=== PATIENT | female | born 1980 | race Caucasian/White ===

== ENCOUNTER 2020-11-15 05:28 | Inpatient (IN) | payer OTHER, SELFPAY ==
[2020-11-12 12:57] LABS: Hematocrit 37.9 % (37-47); Mean Corp Hgb Conc 31.7 g/dL (32-36); Mean Corpuscular Hgb 25.8 pg (27.0-32.0); Mean Corpuscular Volume 81.5 fL (81-99); Platelet Count 381 K/mm3 (150-450); RBC Distribution Width CV 14.7 % (11.6-14.6); RBC Distribution Width SD 42.9 fl (35.1-43.9); Red Blood Count 4.65 M/mm3 (4.2-5.4); White Blood Count 8.5 K/mm3 (4.4-11.0)
[2020-11-12 13:42] LABS: Anion Gap 8 (5-15); BUN 8 mg/dL (7-18); BUN/Creat Ratio 10.2 RATIO (10-20); Calcium,Total 9.5 mg/dL (8.5-10.1); Chloride 108 mmol/L (98-107); Creatinine, Serum 0.79 mg/dL (0.55-1.02); EST Glomerular Filtration Rate 85 mL/min (>60); Est Glom Filt Rate - Afr Amer 103 mL/min (>60); Glucose 116 mg/dL (74-106); Magnesium 2.1 mg/dL (1.6-2.6); Potassium 4.3 mmol/L (3.5-5.1); Sodium Level 138 mmol/L (136-145)
[2020-11-15] VITALS (11 sets, daily range): BP systolic 103–153; BP diastolic 56–89; PULSE 64–89; RESP 16–18; TEMP 36.4–36.9; O2SAT 93–100; BMI 33.0
[2020-11-15] MEDS: Lactated Ringers 1,000 ML 40 ML IV ×3 (05:50→15:52)
[2020-11-15 05:56] LABS: Internal QC Validated? YES +Cl - CLEAR BKGD; Pregnancy, Urine Negative Negative
[2020-11-15] MEDS: Acetaminophen 500 MG Tablet 1000 MG PO ×3 (06:15→17:50)
[2020-11-15] MEDS: Gabapentin 600 MG Tablet PO (06:15)
--- NOTE | 2020-11-15 06:52 | PCM.HP.BLA ---
History and Physical Date of Admission: 11/15/20 Chief complaint: Abdominal pain and pressure History present illness: 40-year-old arrives with pelvic pressure and excruciating abdominal pain for total abdominal hysterectomy bilateral salpingectomy possible left ovarian cystectomy. Denies headache, visual changes, chest pain, shortness of breath, nausea vomiting. Obstetric history: G0 Past medical history: Medications: AVN, Bystolic, Klonopin, Trintellix, Vistaril Past surgical history: Tonsils and adenoids Allergies: Augmentin, ibuprofen Social history: Denies history of smoking, alcohol use, drug use Family history: Denies history of DVT or PE Review of systems: Besides above pertinent positives a full review of systems was performed and found to be negative Physical exam: Vitals: Blood pressure 120/73 pulse 80 respiratory rate 18 temperature 97.6 SPO2 100% on room air General: Normal-appearing no acute distress HEENT: Normocephalic atraumatic no cervical lymphadenopathy Cardiac/respiratory: No use of accessory muscles, nonlabored breathing Abdomen: Soft, nontender, nondistended. Palpable uterus to 3 cm above the umbilicus Pelvic exam: Normal external genitalia. Moist vaginal rugae. Cervix within normal limits. Palpable fibroid uterine fundus 2 to 3 cm above the umbilicus Extremities: No peripheral edema normal peripheral pulses Psych: Normal affect normal demeanor nonpressured speech Labs: Hemoglobin 12, hematocrit 37.9%. Blood type O+ antibody negative Assessment and plan: 40-year-old with pelvic pain and pressure large leiomyomas. Ultrasound in office shows uterus is 17.5 cm x 9.5 cm x 11.5 cm. Multiple fibroids measuring between 11 and 8 cm. Patient G0, understands fertility after hysterectomy and does not desire children. Offered fertility specialist, but patient declines. For total abdominal hysterectomy bilateral salpingectomy possible left ovarian cystectomy.
[2020-11-15 07:15] LABS: Bedside Glucose 189 mg/dL (70-110)
--- NOTE | 2020-11-15 07:15 | HYST_PTH ---
PATIENT: WALLY NOBLE LOC: [facility]3 U#:[id number] AGE/SX: 40/F [place] [facility] [place]: Dr. Jose Manuel Thrasher MD : 1980 BED: 1 DIS: 11/16/2020 SPEC #: [id number] RECD: 11/15/20 11:28 STATUS: SHELLY REIzabel #: [id number] GERARD: 11/15/20 07:[address]: Jose Manuel Thrasher DEPT: SURGICAL PATHOLOGY RECD BY: Sami Leonard ENTERED: 11/15/20 11:50 SP TYPE: HYSTERECT OTHR DR: Dr. Gerald Jara MD Tissues: Uterus, NOS Procedures: Surgery Specimen Level V HEADER OPERATION: ERAS, hysterectomy, total abdominal, bilateral salpingectomy PRE-OP DIAGNOSIS: Pelvic pain and pressure large leiomyomas TISSUE SUBMITTED: Cervix, uterus, bilateral fallopian tubes MICROSCOPIC DIAGNOSIS Uterus, hysterectomy: Cervix ? nabothian cysts and mild chronic inflammation. Endometrium ? weakly proliferative to inactive endometrium. Myometrium ? leiomyomas with hyalinization and focal degenerative change and focal superficial adenomyosis. Right and left fallopian tubes - no pathologic change. AM:jodi 11/16/2020 MICROSCOPIC DESCRIPTION Slides are reviewed. GROSS DESCRIPTION Received in fixative is one container labeled with the patient's name and designated cervix, uterus, bilateral fallopian tubes. The specimen consists of a hysterectomy specimen in multiple pieces consisting of uterus and three detached nodular pieces of tissue, detached cervix and detached bilateral fallopian tubes. The uterus, cervix and detached nodular pieces weigh in aggregate 1110 gm. The cervix measures 4.5 x 3.5 x 2.5 cm. The ectocervical mucosa is unremarkable. The external os is oval in contour. The endocervical canal measures 2.5 cm in length. The endocervical mucosa is unremarkable. The largest consisting of uterus measures 21 x 13 x 10 cm. The detached nodular piece measures in aggregate 16 x 11 x 6 and 6-8 cm in greatest dimension. The body of the uterine is markedly deformed due to nodular masses. The serosal surface is painting, glistening. The endometrial cavity is compressed and measures 5.5 cm in length and up to 2.5 cm in width. The endometrium is painting, glistening without any mass lesion and measures <0.1 cm in thickness. Sections of the uterine wall reveal multiple nodular masses. The largest mass measures 9 cm in greatest dimension. The detached section of the nodular masses including detached nodular masses. Sections of these masses reveal painting whorled cut surfaces without areas of hemorrhage, necrosis or cystic degeneration. Sections of the largest nodular mass reveal a focal area of hemorrhage. Sections of the largest and intermediate nodular mass reveal focal degenerative changes. Most of the uterine wall is replaced by nodular masses. The uninvolved uterine wall measures up to 4 cm in thickness. The fallopian tubes are not identified as right or left and each measures 4.5 cm in length and 0.5 cm in diameter. The fimbrial end is identified. Sections reveal unremarkable cut surfaces. Sections also contain smaller nodular masses. Resident Services Director sections are submitted in 12 cassettes as follows: 1 - anterior cervix, 2 - posterior cervix, 3-6 - uterine wall, 7 & 8 - largest nodular mass, 9 & 10 - intermediate sized nodular masses, 11 & 12 - bilateral fallopian tubes with each cassette containing one fallopian tube. / SJ:rg 11/15/20 TC:1 CPT: 61375
[2020-11-15] MEDS: Cefazolin 2 GM in 0.9% Normal Saline 100 ML IV (07:28)
--- NOTE | 2020-11-15 10:12 | OP.PCM_ITS ---
Report of Operation Date of Procedure: 11/15/20 Pre-Operative Diagnosis: Pelvic pain, leiomyomas Post-Operative Diagnosis: Pelvic pain, leiomyomas Surgery/Procedure Performed:: Total abdominal hysterectomy bilateral salpingectomy Description of Surgical Findings:: Surgeon: Jose Manuel Thrasher MD Anesthesia: General EBL: 100 cc Urine output: 200 cc IV fluids: 1800 cc Complications: None Specimen: Cervix uterus bilateral fallopian tubes, leiomyomatous Findings: Multiple 5 cm anterior fundal pedunculated fibroids, along with 8 cm anterior fibroid, 10 cm posterior fibroid, 4 cm left lateral uterine fibroid. Normal tubes, normal ovaries. Consent: Patient with extreme pelvic pain found to have enlarged uterus secondary to multiple leiomyomas nulliparous and not a good candidate for minimally invasive surgery in need of total abdominal hysterectomy bilateral salpingectomy. Patient understands risk of the procedure include but are not limited to visceral or vascular injury, prolonged hospitalization, blood loss need for transfusion, reoperation. Patient understood with large incision will have prolonged recovery and increase postoperative pain. Patient state understanding wish to proceed. All questions were answered consent was signed. Procedure: Patient was brought back to the OR where general anesthesia found to be adequate. 2 g of Ancef were given for infection prophylaxis. Patient was apparent draped in a dorsal supine position. Maylard incision was made, horizontal skin incision 2 cm suprapubic. Fascia incision was made horizontally and extended laterally. Using a Renetta the right rectus muscle was retracted and inferior epigastric vessel was identified, dissected, and suture-ligated. Good hemostasis was noted. Right rectus muscle was undermined and transected with the Bovie. Left rectus muscle was retracted with a Renetta, left inferior epigastric was identified, dissected, suture-ligated. Good hemostasis noted. Left rectus muscle was undermined and transected with the Bovie. Good hemostasis noted. Peritoneum was entered sharply and extended laterally. Uterus was exteriorized and above findings were noted. Bookwalter retractor was used for lateral abdominal and bladder retraction. Pedunculated fibroids were cut and cauterized for visualization sent to pathology. Right round ligament was identified cut and cauterized anterior posterior flap the broad ligament were dissected bladder flap was developed. Right ovary was identified and right utero-ovarian ligament was identified dissected cut and cauterized. Right fallopian tube was elevated with a Leopold, mesosalpinx was cut and cauterized with LigaSure device. Right uterine vessels were skeletonized cut and cauterized lateralized beyond the level of the colpotomy. Left round ligament was identified cut and cauterized anterior and posterior portions of the broad ligament were dissected bladder flap was completed beyond the level of colpotomy. Left ovary and utero-ovarian ligament were identified cut and cauterized. Left fallopian tube was elevated with a Lory and the mesosalpinx was cut and cauterized with LigaSure device. Left uterine vessels were identified skeletonized and cut and cauterized with LigaSure device. Left uterine vessels were lateralized beyond the level of colpotomy. Uterus was transected 3 to 4 cm above the cervix in order to remove fibroid uterus for good visualization. Cervical stump was grasped with a clamp. With bladder flap and uterine vessels lateralized and dissected beyond the level of the cervix right angle zeppelins were clamped just below the cervix, colpotomy was made with Dara scissors. Brandon stitches were placed bilaterally at the right angle zeppelins, right angle zeppelins were removed. Good hemostasis was noted bilaterally. Using Allis clamps the remaining colpotomy incision was reapproximated with [id number] sutures. Good hemostasis was noted. Peritoneum was closed in continuous running fashion. Fascia was closed in a continuous running fashion. Skin was closed in subcuticular fashion. All counts correct x2. Patient tolerated the procedure well and was brought to recovery in a stable condition. recovery collector: Pinky Luna
--- NOTE | 2020-11-15 10:24 | PCM.DC ---
Discharge Instructions Diet Discharge Diet: No restrictions Activity Discharge Activity: Return to Normal Activity, May Drive, May Shower and - (No tub baths for 2 weeks) May resume sexual activity in: 4-6 weeks Lifting Restrictions: No lifting over 25 pounds for 3 weeks Dressing / Incision Call your doctor if your incision/area has: Continuous Slow Oozing and Foul Smelling Discharge Call your doctor if you observe: Fever of 101 or Higher, Shortness of breath and Chest pain Follow Up Care Please Follow Up With: Jose Manuel Thrasher MD When: Follow-up 2 weeks postoperatively Test Results: Test results from this visit will be discussed in further detail at your follow-up appointment, if applicable. Discharge Plan Admission Admit Date/Time: 11/15/20 05:28 Attending Provider: Jose Manuel Thrasher Primary Care Provider: Gerald Jara Discharge Orders/Prescriptions Prescriptions: New oxycodone 5 mg Tablet 5 mg PO Q6H PRN PRN (Reason: Pain Score 4-10/10) 7 Days Qty: 28 RF: 0 Continued multivitamin Tablet 1 tab PO DAILY RF: 0 pantoprazole 40 mg Tablet,Delayed Release (Dr/Ec) 40 mg PO DAILY RF: 0 magnesium 200 mg Tablet 200 mg PO DAILY RF: 0 L norgest/e.estradiol-e.estrad [Seasonique] 0.15 mg-30 mcg (84)/10 mcg (7) Tablets,Dose Pack,3 Month 1 tab PO DAILY RF: 0 Bystolic 5 mg Tablet 5 mg PO DAILY RF: 0 Trintellix 20 mg Tablet 20 mg PO DAILY RF: 0 Emgality Syringe 120 mg/mL Syringe 120 mg SUBCUT QMONTH RF: 0 Nurtec ODT 75 mg Tablet,Disintegrating 75 mg PO DAILY PRN PRN (Reason: Migraine Headache) RF: 0 clonazepam [Klonopin] 1 mg Tablet 1 mg PO DAILY PRN PRN (Reason: Anxiety) RF: 0 Referrals / Follow Up: Gerald Jara MD [Primary Care Provider] -
[2020-11-15] MEDS: Ondansetron 4 MG/2 ML Vial IV (10:43)
--- NOTE | 2020-11-15 11:28 | SUR.PHASEI ---
AT 11:15, LORENZ CATHETER REMOVED INTACT.
[2020-11-15] MEDS: oxyCODONE 5 MG Tablet PO ×2 (15:52→20:02)
[2020-11-15] MEDS: Ketorolac 30 MG/ML Syringe IV (17:49)
[2020-11-15] MEDS: Docusate Sodium 100 MG Capsule PO (20:51)
[2020-11-16 00:06] VITALS: BP 134/71; PULSE 68; RESP 16; TEMP 36.9; O2SAT 93
[2020-11-16] MEDS: Ketorolac 30 MG/ML Syringe IV ×2 (00:10→05:38)
[2020-11-16] MEDS: Acetaminophen 500 MG Tablet 1000 MG PO ×2 (00:10→05:37)
[2020-11-16 04:25] VITALS: BP 130/73; PULSE 71; RESP 16; TEMP 36.7; O2SAT 93
[2020-11-16] MEDS: 0.9% Saline Lock 10 ML Syringe IV (05:42)
[2020-11-16 07:11] LABS: Hematocrit 32.9 % (37-47); Hemoglobin 10.1 g/dL (12.0-15.0); Mean Corp Hgb Conc 30.7 g/dL (32-36); Mean Corpuscular Hgb 25.6 pg (27.0-32.0); Mean Corpuscular Volume 83.3 fL (81-99); Mean Platelet Vol. 11.3 fl (6.2-12.0); Platelet Count 351 K/mm3 (150-450); RBC Distribution Width CV 14.6 % (11.6-14.6); RBC Distribution Width SD 44.3 fl (35.1-43.9); Red Blood Count 3.95 M/mm3 (4.2-5.4); White Blood Count 12.5 K/mm3 (4.4-11.0)
--- NOTE | 2020-11-16 07:52 | PCM.PN.OB ---
Subjective Subjective No overnight complaints. Pain well controlled. Objective Data Objective Data Vital Signs: Vital Signs Temp Pulse Resp BP Pulse Ox 98.0 F 71 16 130/73 H 93 11/16/20 04:25 11/16/20 04:25 11/16/20 04:25 11/16/20 04:25 11/16/20 04:25 Oxygen Flow Rate (L/min) 6 Oxygen Delivery Method Room Air Weight: 174 lb 9.698 oz Body Mass Index (BMI) 33.0 Intake & Output: Intake and Output for Last 24 Hours 11/14/20 11/15/20 11/16/20 23:59 23:59 23:59 Intake Total 1959 / 2359 1154.67 / 1154.67 Output Total 250 / 1150 1600 / 1600 Balance 1709 / 1209 -445.33 / -445.33 Lab / Micro Data Result Diagrams: 11/16/20 05:42 11/12/20 11:46 Labs: Laboratory Results - last 24 hr 11/16/20 05:42: WBC 12.5 H, RBC 3.95 L, Hgb 10.1 L, Hct 32.9 L, MCV 83.3, MCH 25.6 L, MCHC 30.7 L, RDW Std Deviation 44.3 H, RDW Coeff of Teresa 14.6, Plt Count 351, MPV 11.3 Physical Exam Const alert, oriented x3, no apparent distress and average body habitus HEENT normocephalic and moist oral mucous membranes Head and Scalp: atraumatic Face and Sinus: normal facial exam Eyes PERRL Neck full ROM and no lymphadenopathy Resp normal respiratory effort, no retractions and no use of accessory muscles GI normal to inspection, nondistended, normoactive bowel sounds GI Narrative: Bandage clean dry and intact Extremity normal to inspection, full ROM and no clubbing, cyanosis or edema Psych mental status grossly normal, affect normal, speech normal and activity/motor behavior normal Assessment & Plan (1) Acute postoperative pain: PLAN: Postoperative day 1 status post total abdominal hysterectomy bilateral salpingectomy for leiomyomas. Pain well controlled. Patient allergic to ibuprofen, educated on Tylenol and Rx for oxycodone. Will discharge home today. Follow-up in 2 weeks postoperatively
[2020-11-16] MEDS: Enoxaparin 40 MG/0.4 ML Syringe SC (08:08)
[2020-11-16] MEDS: Docusate Sodium 100 MG Capsule PO (08:08)
[2020-11-16 08:16] VITALS: BP 133/69; PULSE 63; RESP 18; TEMP 36.7; O2SAT 97
[2020-11-16 09:01] VITALS: O2SAT 96
[2020-11-16] MEDS: oxyCODONE 5 MG Tablet PO (09:17)
--- NOTE | 2020-11-16 09:25 | CASEMGMT ---
[employer] SECURITY CONSULTANT CM to room to meet with patient for initial transition planning/care coordination assessment. MONSTER YAP introduced self and role at [facility]. Pt voices understanding and consents to assessment at this time. Pt up in room ad ryland, getting ready to go home. Pt's mom present and pt agreeable to completing assessment while mom in room. Pt is A/O at this time and answers all questions appropriately. Care providers, pharmacy, and demographics verified/updated at this time. PCP: Dr Jara Specialists: Dr Jose Manuel Thrasher Preferred Pharmacy:[facility] Retail Insurance:MMO Prescription Benefit: Yes LNOK:Mother Living Arrangements: Lives w/her mother. Independent Transportation: Pt, mom DME: Denies using any DME and denies needs. Pt wishes to return home and states has no concerns with going home at time of discharge. Pt voices concerns/needs at this time. PLAN: Home w/discharge plans in place. Kurt THOMSON RN, CM
== END 2020-11-16 09:32 | disposition home or self-care (01) | DRG 743 ==
LOC: ACINP 08:01 → MS3 14:19
PROVIDERS: Anesthesiology; Admitting Provider Obstetrics & Gynecology; PCP Family Medicine; Referring Provider Obstetrics & Gynecology; Visit Provider Obstetrics & Gynecology
PROC: 0UT90ZZ Resection of Uterus, Open Approach (ICD-10-PCS; CPT 58150; principal; 2020-11-15 07:15)
DX: D25.9 Leiomyoma of uterus, unspecified (principal); N88.8 Other specified noninflammatory disorders of cervix uteri; N72 Inflammatory disease of cervix uteri; N80.0 Endometriosis of uterus; F41.9 Anxiety disorder, unspecified; J45.909 Unspecified asthma, uncomplicated; K21.9 Gastro-esophageal reflux disease without esophagitis; I10 Essential (primary) hypertension; Z79.899 Other long term (current) drug therapy
CPT/HCPCS: 36415; 80048; 81025; 82962; 83735; 85027; 86850; 86900; 86901; 88307; 99251; J7120; A4216; G0463; J2405